=== PATIENT | female | born 1965 | race Caucasian/White ===

== ENCOUNTER 2017-04-18 08:55 | Day surgery (SDC) | payer BC ==
--- OUTSIDE RECORDS SUMMARY | 2017-04-18 08:58 | XMS REPORT | Continuity of Care Document ---
:1965 Demographics Phone Unavailable Preferred Language Unknown Marital Status Unknown Judaism Affiliation Unknown Race Unknown Ethnic Group Unknown Author Organization [facility] ([facility]) [place] [address] Phone [phone] Care Team Providers Name Role Phone Unavailable Primary Care Provider Unavailable Source Comments This disclosure is being made pursuant to the Care Everywhere program, applicable federal and state laws, and may not contain all informaitonavailable regarding this patient.[facility] ([facility]) Active Allergies and Adverse Reactions Not on File Current Medications Not on file Active Problems Not on file Social History Tobacco Use Types Packs/Day Years Used Date Never Assessed Plan of Care Health Maintenance Due Date Last Done Comments HCV Screening 1965 Hepatitis B Vaccine (1 of 3 - Primary Series) 1965 Tdap Vaccine 1974 Lipid Disorder Screening 1981 MMR Vaccine 1981 Td Vaccine 1981 Cervical Cancer Screening 1993 Mammogram 2003 Colonoscopy 11/05/2013 Influenza Vaccine: Seasonal (#1) 06/24/2016 Results from Last 3 Months Not on file
[2017-04-18] MEDS: RINGERS SOLUTION,LACTATED 1,000 ML IV PRN (09:45)
--- NOTE | 2017-04-18 11:05 | OR ---
Operative Report - Dictated Report Narrative: Date: PREOP: Screening for colon CA POSTOP: Normal colonoscopy PROC: Total colonoscopy SURG: Kane Evans MD EBL: none SPECIMENS: none COMPS: none apparent ANESTH: MAC per BALLROOM DANCER DESCRIPTION: After informed consent and appropriate sedation the patient was placed in the left lateral decubitus position. A flexible fiberooptic video colonoscope was introduced and advanced under direct vision without difficulty to the cecum. The usualy landmarks were identified. Preparation was excellent and excellent views were obtained. The findings were of a normal cecum, ascending colon, hepatic flexure, transverse colon, splenic flexure, descending colon, sigmoid colon, rectum, and anus. The mucosal color, vasculature and texture were normal throughout. No suspicious masses were seen. The patient tolerated the procedure well without apparent complications and was discharged from the endoscopy suite in stable condition.
[2017-04-18 12:01] VITALS: BP 143/66
== END 2017-04-18 08:56 | disposition home or self-care (01) ==
LOC: AMB 08:55
PROVIDERS: ATTEND Specialist
PROC: 0DJD8ZZ Inspection of Lower Intestinal Tract, Via Natural or Artificial Opening Endoscopic (ICD-10-PCS; principal; 2017-04-18 10:15)
DX: Z12.11 Encounter for screening for malignant neoplasm of colon (principal); I10 Essential (primary) hypertension; Z68.39 Body mass index [BMI] 39.0-39.9, adult
CPT/HCPCS: 45378; G0121